=== PATIENT | female | born 1985 | race Two or more races ===

== ENCOUNTER 2020-06-23 07:53 | Emergency (ER) | payer MEDICAID, OTHER ==
[~2020-06-23] VITALS: Ht 149.9 cm; Wt 49.9 kg
[2020-06-23 08:01] VITALS: BP 127/81
== END 2020-06-23 08:40 | disposition home or self-care (01) ==
LOC: ER 07:53
DX: J02.9 Acute pharyngitis, unspecified (principal); F12.10 Cannabis abuse, uncomplicated; Z88.0 Allergy status to penicillin; Z88.6 Allergy status to analgesic agent